=== PATIENT | male | born 1995 | race Caucasian/White ===

== ENCOUNTER 2017-08-30 12:00 | Emergency (ER) | payer OTHER ==
[~2017-08-30] VITALS: Ht 172.7 cm; Wt 62.4 kg
[2017-08-30 12:15] VITALS: BP 144/85
== END 2017-08-30 13:24 | disposition home or self-care (01) ==
LOC: ED 13:15
DX: J02.0 Streptococcal pharyngitis (principal); B97.89 Other viral agents as the cause of diseases classified elsewhere
CPT/HCPCS: 87081; 87880; 99284